=== PATIENT | female | born 1980 | race Caucasian/White ===

== ENCOUNTER 2018-02-06 09:32 | Outpatient (CLI) | payer OTHER | END 2018-02-06 09:33 | disposition home or self-care (01) | LOC: BICRAD 09:32 | PROVIDERS: ATTEND Family Medicine | DX: M54.6 Pain in thoracic spine (principal) | CPT/HCPCS: 72072 ==

== ENCOUNTER 2019-01-30 10:27 | Outpatient (CLI) | payer OTHER ==
[2019-01-30] MEDS ORDERED: Gadobenate Dimeglumine 529 MG/1 ML (20ML VIAL) ONE (11:50)
--- NOTE | 2019-01-30 14:17 | MRI ---
MRI lumbar spine with and without noncontrast: DATE: 01/30/2019 HISTORY: 39-year-old female with low back pain and left lumbar radiculopathy This was ordered with and without contrast, but the patient has not had any previous lumbar surgery b y history. COMPARISON: None available. FINDINGS: For the purposes of this report, it will be assumed that there are 5 lumbar-type vertebrae. Vertebral body heights are maintained. Mildly exaggerated lordosis of the lower lumbar spine. 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 Otherwise no significant bone marrow signal abnormality. Conus medullaris terminates at L1-2. There is no abnormal, unexpected enhancement. T12-L1:Normal L1-2:Normal L2-3:Minimal retrolisthesis of L2 on L3. Otherwise normal. L3-4:Minimal degenerative retrolisthesis of L3 on L4. Disc desiccation. Disc space maintained. No janey tral stenosis or high-grade neural foraminal stenosis. L4-5:Disc space maintained. Mild disc bulge. Mild degenerative facet changes. No central stenosis. Mi ld bilateral neural foraminal stenosis. L5-S1:Mild left neural foraminal stenosis. Tiny left paracentral-lateral annular fissure. Disc space maintained. No central stenosis. No high-grade right neural foraminal stenosis. No high-grade facet DJD. IMPRESSION: 1. Minimal/mild degenerative changes. 2. Otherwise normal.
== END 2019-01-30 10:28 | disposition home or self-care (01) ==
LOC: BICMRI 10:27
PROVIDERS: ATTEND Family Medicine
DX: M47.26 Other spondylosis with radiculopathy, lumbar region (principal)
CPT/HCPCS: 72158; A9577

== ENCOUNTER 2022-02-22 10:11 | Outpatient (CLI) | payer BC | END 2022-02-22 10:12 | disposition home or self-care (01) | LOC: BICMAMMO 10:11 | PROVIDERS: ATTEND Family Medicine | DX: Z12.31 Encounter for screening mammogram for malignant neoplasm of breast (principal); Z98.82 Breast implant status | CPT/HCPCS: 77063; 77067 ==

== ENCOUNTER 2022-03-01 10:22 | Outpatient (CLI) | payer BC | END 2022-03-01 10:23 | disposition home or self-care (01) | LOC: BICMRI 10:22 | PROVIDERS: ATTEND Family Medicine | DX: M47.26 Other spondylosis with radiculopathy, lumbar region (principal) | CPT/HCPCS: 72148 ==

== ENCOUNTER 2023-02-20 16:41 | Emergency (ER) | payer BC | END 2023-02-20 17:39 | disposition left against medical advice (07) | LOC: ERS 16:41 | DX: Z53.21 Procedure and treatment not carried out due to patient leaving prior to being seen by health care provider (principal) ==

== ENCOUNTER 2024-01-18 10:36 | Outpatient (CLI) | payer BC | END 2024-01-18 10:37 | disposition home or self-care (01) | LOC: BICMRI 10:36 | PROVIDERS: ATTEND Nurse Practitioner Family | DX: M47.22 Other spondylosis with radiculopathy, cervical region (principal); M50.11 Cervical disc disorder with radiculopathy, high cervical region; M48.02 Spinal stenosis, cervical region | CPT/HCPCS: 72141 ==